=== PATIENT | female | born 1985 | race Caucasian/White ===

== ENCOUNTER 2019-06-23 19:37 | Emergency (ER) | payer SELFPAY ==
[~2019-06-23] VITALS: Ht 154.9 cm; Wt 47.6 kg
--- NOTE | 2019-06-23 20:20 | NUR ---
Patient ambulated with stable gait. Speech clear, speaks in complete sentences. No neuro deficits noted. A/Ox4. Patient came for bug bites in her bilateral LE's. Patient afebrile. Respiratory even and unlabored no cough no sob. Denies any n/v/d
[2019-06-23] MEDS ORDERED: SULFAMETH/TRIMETH 800/160 MG TABLET PO ONE (20:30)
[2019-06-23] MEDS ORDERED: SULFAMETH/TRIMETH 800/160 MG TABLET ONE (20:33)
--- NOTE | 2019-06-23 20:39 | NUR ---
Patient discharged to home in stable conditon. Written and verbal after care instructions given. Patient verbalizes understanding of instructions. Patient ambulated with stable gait.
[2019-06-23 20:56] VITALS: BP 110/80
== END 2019-06-23 20:57 | disposition home or self-care (01) ==
LOC: ER 19:40
DX: S80.862A Insect bite (nonvenomous), left lower leg, initial encounter (principal); S80.861A Insect bite (nonvenomous), right lower leg, initial encounter; S60.562A Insect bite (nonvenomous) of left hand, initial encounter; F32.9 Major depressive disorder, single episode, unspecified; W57.XXXA Bitten or stung by nonvenomous insect and other nonvenomous arthropods, initial encounter; Y93.89 Activity, other specified; Y92.89 Other specified places as the place of occurrence of the external cause; Y99.8 Other external cause status
CPT/HCPCS: A4663

== ENCOUNTER 2019-07-16 22:28 | Emergency (ER) | payer OTHER ==
[~2019-07-16] VITALS: Ht 154.9 cm; Wt 47.6 kg
[2019-07-16] MEDS ORDERED: predniSONE 20 MG TABLET PO ONE (23:15)
[2019-07-16] MEDS ORDERED: predniSONE 50 MG TABLET ONE (23:22)
[2019-07-16] MEDS ORDERED: predniSONE 10 MG TABLET ONE (23:22)
--- NOTE | 2019-07-16 23:27 | NUR ---
Patient discharged to home in stable conditon. Written and verbal after care instructions given. Patient verbalizes understanding of instructions. WALKED OUT OF ER WITH NO DISTRESS NOTED.
[2019-07-16 23:28] VITALS: BP 118/74
== END 2019-07-16 23:28 | disposition home or self-care (01) ==
LOC: ER 22:33
DX: S90.562A Insect bite (nonvenomous), left ankle, initial encounter (principal); S90.561A Insect bite (nonvenomous), right ankle, initial encounter; L03.115 Cellulitis of right lower limb; L03.116 Cellulitis of left lower limb; F32.9 Major depressive disorder, single episode, unspecified; Z88.1 Allergy status to other antibiotic agents; W57.XXXA Bitten or stung by nonvenomous insect and other nonvenomous arthropods, initial encounter; Y93.89 Activity, other specified; Y92.89 Other specified places as the place of occurrence of the external cause; Y99.8 Other external cause status
CPT/HCPCS: 99283; J7512 ×2; A4663